=== PATIENT | male | born 1990 | race Two or more races ===

== ENCOUNTER 2023-11-05 12:03 | Inpatient (IN) | payer BC ==
[2023-11-05 12:48] VITALS: BMI 26.3
[2023-11-05] MEDS ORDERED: IBUPROFEN 600 MG TABLET (FP) PO PRN (17:01)
[2023-11-05] MEDS ORDERED: chlordiazePOXIDE HCL 25 MG CAPSULE PO PRN (17:01)
[2023-11-05] MEDS ORDERED: ACETAMINOPHEN 325 MG TABLET (FP) PO PRN (17:01)
[2023-11-05] MEDS ORDERED: BENZONATATE 200 MG CAPSULE PO PRN (17:01)
[2023-11-05] MEDS ORDERED: guaiFENesin 600 MG TABLET.ER (FP) PO PRN (17:01)
[2023-11-05] MEDS ORDERED: BISMUTH SUBSALICYLATE 524 MG/30 ML PO PRN (17:01)
[2023-11-05] MEDS ORDERED: MAGNESIUM HYDROX 2400MG/30ML ORAL SUSPENSION 30 ML CUP PO PRN (17:01)
[2023-11-05] MEDS ORDERED: POLYETHYLENE GLYCOL (HEALTHYLAX) 3350 17 GM PACKET PO PRN (17:01)
[2023-11-05] MEDS ORDERED: LOPERAMIDE HCL 2 MG CAPSULE PO PRN (17:01)
[2023-11-05] MEDS ORDERED: MAG HYDROX/AL HYDROX/SIMETH 30 ML UNIT-DOSE CUP PO PRN (17:01)
[2023-11-05] MEDS ORDERED: METHOCARBAMOL 500 MG TABLET PO PRN (17:01)
[2023-11-05] MEDS ORDERED: ONDANSETRON *ODT* 4 MG TABLET SL PRN (17:01)
[2023-11-05] MEDS ORDERED: NALOXONE (NARCAN) HCL 4 MG/0.1 ML SPRAY NS PRN (17:01)
[2023-11-05] MEDS ORDERED: IBUPROFEN 400 MG TABLET (FP) PO PRN (17:01)
[2023-11-05] MEDS ORDERED: DICYCLOMINE HCL 10 MG CAPSULE PO PRN (17:01)
[2023-11-05] MEDS ORDERED: BENZOCAINE/MENTHOL (CHLORASEPTIC ) LOZENGE MM PRN (17:01)
[2023-11-05] MEDS: diazePAM 5 MG TABLET PO PRN (18:17)
[2023-11-05] MEDS ORDERED: cloNIDine HCL 0.1 MG TABLET PO PRN (18:24)
[2023-11-05] MEDS: cloNIDine HCL 0.1 MG TABLET PO PRN (19:05)
[2023-11-05] MEDS: NICOTINE POLACRILEX 4 MG GUM BUC PRN (20:26)
[2023-11-05] MEDS: MELATONIN 5 MG TABLETS PO SCH (22:22)
[2023-11-05] MEDS: THIAMINE 100 MG TABLET PO SCH (22:22)
[2023-11-05] MEDS: diazePAM 5 MG TABLET PO SCH (22:23)
[2023-11-05] MEDS ORDERED: chlordiazePOXIDE HCL 25 MG CAPSULE PO SCH (23:00)
[2023-11-06] MEDS: NALOXONE HCL 0.4 MG/ML VIAL IM PRN (03:51)
[2023-11-06] MEDS: hydrOXYzine PAMOATE 25 MG CAPSULE (FP) PO PRN (05:40)
[2023-11-06] MEDS: PRENATAL VITAMINS W/ FOLIC ACID TABLET (FP) PO SCH (10:00)
[2023-11-06] MEDS: NICOTINE 14 MG/24 HOURS TOPICAL PATCH TD SCH (10:04)
[2023-11-06 13:27] LABS: HEMATOCRIT 42.1 % (35.4-49); HEMOGLOBIN 14.2 GM/dL (11.7-16.9); MCH 30.4 pg (25.7-33.7); MCHC 33.7 g/dl (32.0-35.9); MEAN CELL VOLUME 90.1 fl (80-96); MEAN PLT VOLUME 8.5 fl (7.5-11.1); PLATELET COUNT 151 10^3/uL (134-434); RBC 4.67 M/mm3 (4.00-5.60); RDW 15.2 % (11.9-15.9); WHITE BLOOD COUNT 5.2 K/mm3 (4.0-10.0)
[2023-11-06 13:36] LABS: CHLORIDE 98 mmol/L (98-107); POTASSIUM 3.8 mmol/L (3.5-5.1); SODIUM 136 mmol/L (136-145)
[2023-11-06 13:43] LABS: ALBUMIN 3.8 g/dl (3.4-5.0); ANION GAP 7 mmol/L (4-13); CALCIUM 9.5 mg/dL (8.5-10.1); CO2 32 mmol/L (21-32); GLUCOSE,RANDOM 117 mg/dL (74-106)
[2023-11-06 13:58] LABS: SGOT/AST 281 U/L (15-37); SGPT/ALT 132 U/L (13-61)
[2023-11-06 13:59] LABS: BILIRUBIN,TOTAL 4.3 mg/dL (0.2-1)
[2023-11-06 14:00] LABS: TOT PROT 7.3 g/dl (6.4-8.2)
[2023-11-06 14:01] LABS: ALK PHOS 85 U/L (45-117)
[2023-11-06 14:08] LABS: BLOOD UREA NITROGEN 2.8 mg/dL (7-18)
[2023-11-06] MEDS: NALTREXONE HCL 50 MG TABLET PO SCH (17:36)
[2023-11-06] MEDS: diphenhydrAMINE HCL 25 MG CAPSULE (FP) PO ONE (19:49)
[2023-11-06] MEDS: CHOLESTYRAMINE/NUTRASWEET 4 GM PACKET PO SCH (22:18)
[2023-11-06] MEDS: SUVOREXANT 10 MG TABLET PO PRN (22:19)
[2023-11-07] MEDS ORDERED: chlordiazePOXIDE HCL 25 MG CAPSULE PO SCH (05:00)
[2023-11-07] MEDS: diazePAM 5 MG TABLET PO SCH (05:33)
[2023-11-07] MEDS: NALTREXONE HCL 50 MG TABLET PO ONE (12:41)
[2023-11-07] MEDS ORDERED: ACAMPROSATE CALCIUM 333 MG TABLET.DR PO SCH (14:00)
[2023-11-08] MEDS ORDERED: chlordiazePOXIDE HCL 10 MG CAPSULE PO PRN
[2023-11-08] MEDS ORDERED: chlordiazePOXIDE HCL 10 MG CAPSULE PO SCH (05:00)
[2023-11-08] MEDS: diazePAM 5 MG TABLET PO SCH (05:30)
[2023-11-08 06:30] VITALS: RESP 16
[2023-11-08 09:42] VITALS: BP 132/97; PULSE 108; TEMP 96.8
[2023-11-09] MEDS ORDERED: chlordiazePOXIDE HCL 10 MG CAPSULE PO SCH (05:00)
[2023-11-09] MEDS ORDERED: diazePAM 5 MG TABLET PO ONE (06:00)
[2023-11-10] MEDS ORDERED: chlordiazePOXIDE HCL 10 MG CAPSULE PO ONE (05:00)
== END 2023-11-08 09:38 | disposition home or self-care (01) | DRG 775 ==
LOC: YASAS 12:03 → Y6N 17:23
PROVIDERS: ADMIT Allergy & Immunology; ATTEND Surgery
PROC: HZ2ZZZZ Detoxification Services for Substance Abuse Treatment (ICD-10-PCS; principal; 2023-11-05)
DX: F10.230 Alcohol dependence with withdrawal, uncomplicated (principal); F31.9 Bipolar disorder, unspecified; F10.24 Alcohol dependence with alcohol-induced mood disorder; F10.282 Alcohol dependence with alcohol-induced sleep disorder; F17.210 Nicotine dependence, cigarettes, uncomplicated; D35.2 Benign neoplasm of pituitary gland; I10 Essential (primary) hypertension; E78.5 Hyperlipidemia, unspecified; K76.0 Fatty (change of) liver, not elsewhere classified; R79.89 Other specified abnormal findings of blood chemistry; R74.01 Elevation of levels of liver transaminase levels; Z88.8 Allergy status to other drugs, medicaments and biological substances
CPT/HCPCS: 36415; 80053; 80305; 80307; 82247; 84450; 85027; 86780; 86803; 93005; 93010